=== PATIENT | male | born 1945 | race Caucasian/White ===

== ENCOUNTER 2019-03-08 12:06 | Inpatient (IN) | payer MEDICARE, BC ==
[~2019-03-08] VITALS: Ht 177.8 cm; Wt 95.3 kg
[2019-03-08] MEDS ORDERED: ALLO100T PO (12:30)
[2019-03-08] MEDS ORDERED: ASPI81TA31 PO (12:30)
[2019-03-08] MEDS ORDERED: AMLO5TAB9 PO (12:30)
[2019-03-08] MEDS ORDERED: ATOR40TA PO (12:30)
[2019-03-08] MEDS ORDERED: ASPIRIN 325 MG TABLET ONE (12:42)
[2019-03-08] MEDS ORDERED: ASPIRIN 325 MG TABLET PO ONE (12:45)
[2019-03-08 12:47] LABS: BASOPHILS # (AUTO) 0.1 K/uL (0.0-8.0); BASOPHILS % (AUTO) 1.1 % (0.0-2.0); EOSINOPHILS # (AUTO) 0.1 K/uL (0.0-0.7); EOSINOPHILS % (AUTO) 2.1 % (0.0-7.0); HEMATOCRIT 47.4 % (36.7-47.1); HEMOGLOBIN 16.4 g/dL (12.5-16.3); LYMPHOCYTES # (AUTO) 2.2 K/uL (20.0-40.0); LYMPHOCYTES % (AUTO) 33.8 % (20.5-51.5); MEAN CORPUSCULAR HEMOGLOBIN 33.6 uug (23.8-33.4); MEAN CORPUSCULAR HGB CONC 35 g/dL (32.5-36.3); MEAN CORPUSCULAR VOLUME 97.3 fL (73.0-96.2); MONOCYTES # (AUTO) 0.6 K/uL (2.0-10.0); MONOCYTES % (AUTO) 8.9 % (0.0-11.0); NEUTROPHILS # (AUTO) 3.5 K/uL (1.8-8.9); NEUTROPHILS % (AUTO) 54.1 % (38.5-71.5); PLATELET COUNT (AUTO) 208 K/uL (152-348); RED BLOOD CELL COUNT(AUTO) 4.87 MIL/uL (4.06-5.63); WHITE BLOOD COUNT (AUTO) 6.6 K/uL (3.6-10.2)
[2019-03-08 12:58] LABS: CREATININE 1.3 mg/dL (0.6-1.3); POTASSIUM 4.2 mmol/L (3.5-5.1)
[2019-03-08 13:10] LABS: BILIRUBIN,DIRECT 0.1 mg/dL (0.0-0.2); BILIRUBIN,TOTAL 0.7 mg/dL (0.2-1.0); TOTAL PROTEIN, SERUM 7.6 g/dL (6.4-8.2)
--- NOTE | 2019-03-08 14:26 | NUR ---
Dr. Deborah villanueva for Dr. Cee. Addendum: 03/08/19 at 1903 by OLGA TELE BED NOT AVAILABLE AT THIS TIME
--- NOTE | 2019-03-08 14:50 | NUR ---
pt walkked to bathroom in steady gait.
--- NOTE | 2019-03-08 14:55 | NUR ---
DR. FERRO AT BEDSIDE.
[2019-03-08] MEDS ORDERED: ONDANSETRON 4 MG/2 ML VIAL IV PRN (17:45)
[2019-03-08] MEDS ORDERED: MAGNESIUM HYDROXIDE 30 ML LIQUID UDC PO PRN (17:45)
[2019-03-08] MEDS ORDERED: Z GUARD REMEDY PASTE 57 GM TUBE TOP PRN (17:45)
[2019-03-08] MEDS ORDERED: HYDROCODONE/APAP 5-325MG TABLET PO PRN (17:45)
[2019-03-08] MEDS ORDERED: ACETAMINOPHEN 325 MG TABLET PO PRN (17:45)
--- NOTE | 2019-03-08 19:02 | NUR ---
PT TRANSFERED TO FLOOR IN STABLE CONDITION. PT REMAINED CALM AND COMFORTABLE THE WHOLE ER STAY. DENIED ANY PAIN,DIZZINESS OR SOB. A T BEDSIDE.
--- NOTE | 2019-03-08 19:10 | NUR ---
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 PATIENT ALERT ORIENTED, NO SOB NO CHEST PAIN, TELE MONITOR SINUS RHYTHM WITH BUNDLE BRANCH. ORIENT PATIENT TO THE ROOM. CONT TO MONITOR.
[2019-03-08 19:30] VITALS: BP 165/91
--- NOTE | 2019-03-08 22:54 | NUR ---
PATIENT REQUESTED LIVE TONG NP WITH ORDER.
[2019-03-08] MEDS ORDERED: ZOLPIDEM 5 MG TABLET PO PRN (23:00)
[2019-03-09 00:15] VITALS: BP 135/81
--- NOTE | 2019-03-09 00:30 | NUR ---
PATIENT ALERT ORIENTED, NO SOB NO CHEST PAIN, PATIENT BP ELEVATED EARLIER, BUT NO HEADACHES, NO DIZZINESS, ASYMPTOMATIC,CONT TO MONITOR.
[2019-03-09 04:25] VITALS: BP 146/84
--- NOTE | 2019-03-09 04:36 | NUR ---
PATIENT ALERT ORIENTED NO SOB NO CHEST, PATIENT HAS NO COMPLAIN OF PAIN. PATIENT HAS EPISODE OF SINUS BRADYCARDIA BUT NOT SUSTAINED, PATIENT ASYMPTOMATIC, CONTINUE TO MONITOR.
[2019-03-09 06:17] LABS: BASOPHILS # (AUTO) 0.1 K/uL (0.0-8.0); EOSINOPHILS # (AUTO) 0.2 K/uL (0.0-0.7); EOSINOPHILS % (AUTO) 2.7 % (0.0-7.0); HEMATOCRIT 44.3 % (36.7-47.1); HEMOGLOBIN 15.3 g/dL (12.5-16.3); LYMPHOCYTES # (AUTO) 2.1 K/uL (20.0-40.0); LYMPHOCYTES % (AUTO) 31.3 % (20.5-51.5); MEAN CORPUSCULAR HEMOGLOBIN 33.5 uug (23.8-33.4); MEAN CORPUSCULAR HGB CONC 35 g/dL (32.5-36.3); MEAN CORPUSCULAR VOLUME 97.1 fL (73.0-96.2); MONOCYTES # (AUTO) 0.7 K/uL (2.0-10.0); MONOCYTES % (AUTO) 11.1 % (0.0-11.0); NEUTROPHILS # (AUTO) 3.6 K/uL (1.8-8.9); NEUTROPHILS % (AUTO) 53.9 % (38.5-71.5); PLATELET COUNT (AUTO) 209 K/uL (152-348); RED BLOOD CELL COUNT(AUTO) 4.56 MIL/uL (4.06-5.63); WHITE BLOOD COUNT (AUTO) 6.7 K/uL (3.6-10.2)
[2019-03-09 06:32] LABS: CREATININE 1.3 mg/dL (0.6-1.3); PHOSPHOROUS 3.3 mg/dL (2.5-4.9); POTASSIUM 3.8 mmol/L (3.5-5.1)
[2019-03-09 06:49] LABS: THYROID STIMULATING HORMONE 3.893 mIU/mL (0.358-3.740)
--- NOTE | 2019-03-09 08:30 | NUR ---
Patient anxious to go home, explained plan of care. Dr. Street seen and examined patient. Explained benefits of care and risks of leaving against medical advice and spoke with patient's project manager retail. Patient agreeable with treatment care.
[2019-03-09 11:36] VITALS: BP 161/82
--- NOTE | 2019-03-09 12:24 | NUR ---
Echocardiogram not yet done. Patient decided to go home against medical advice. Form signed by patient. Saline lock removed. Tele removed. Went home per ambulatory, accompanied by , not in distress.
[2019-03-09] MEDS ORDERED: ATORVASTATIN 40 MG TABLET PO SCH (21:00)
[2019-03-10] MEDS ORDERED: ALLOPURINOL 100 MG TABLET PO SCH (09:00)
[2019-03-10] MEDS ORDERED: AMLODIPINE 5 MG TABLET PO SCH (09:00)
[2019-03-10] MEDS ORDERED: ASPIRIN 81 MG TAB.CHEW PO SCH (09:00)
== END 2019-03-09 12:20 | disposition left against medical advice (07) | DRG 310 ==
LOC: ER 12:06 → TELE3 18:59
PROVIDERS: ADMIT Student in an Organized Health Care Education/Training Program; ATTEND Student in an Organized Health Care Education/Training Program
DX: I45.2 Bifascicular block (principal); R00.1 Bradycardia, unspecified; I11.9 Hypertensive heart disease without heart failure; E78.5 Hyperlipidemia, unspecified; I70.0 Atherosclerosis of aorta; I25.10 Atherosclerotic heart disease of native coronary artery without angina pectoris; Z79.82 Long term (current) use of aspirin; M10.9 Gout, unspecified
CPT/HCPCS: 36415; 70030-TC; 71045; 83735; 84100; 84443; 85025; 85730; 93005; A4663; G0378